=== PATIENT | female | born 1965 | race Two or more races ===

== ENCOUNTER 2020-01-13 16:25 | Outpatient (CLI) | payer BC ==
--- NOTE | 2020-01-13 16:40 | RAD ---
EXAM: Chest PA and lateral: HISTORY: Positive TB Gold COMPARISON: None FINDINGS: Heart: Normal cardiac silhouette Aorta: Unremarkable Pulmonary vessels: Normal Costophrenic angles: Costophrenic angles are clear. Lungs: No masses or consolidation. Mild hyperinflation with patchy interstitial changes likely chroni c. No cavitary lesions. Pneumothorax: No pneumothorax Osseous structures: No osseous abnormalities IMPRESSION: No cavitary lesions.
== END 2020-01-13 16:26 | disposition home or self-care (01) ==
LOC: BICRAD 16:25
PROVIDERS: ATTEND Family Medicine
DX: Z22.7 Latent tuberculosis (principal)
CPT/HCPCS: 71046